=== PATIENT | male | born 1990 | race Caucasian/White ===

== ENCOUNTER 2019-11-04 22:09 | Emergency (ER) | payer OTHER ==
[2019-11-04 22:15] VITALS: BMI 48.2
--- NOTE | 2019-11-04 23:33 | PDOC ---
History of Present Illness - General Chief Complaint: Eye Problem Stated Complaint: BLURRY VISION History Source: Patient Exam Limitations: No Limitations - History of Present Illness Initial Comments: 11/04/19 23:21 Patient is a 29 year old male with no pmhx c/o double vision since 3 days ago. was sick with a cold, then a OCONNELL. States he went to work on 11/02/19 becauase the symtpoms were not back but on the way home he had to close one eye so he could drive home. went to [facility] yesterday and was Dx Sinusitis. Was given a shot for the pain which resolved OCONNELL, but continued to have double vision. He feels like pressing pain on the right eye 4/10 which feels better when he closes the eyes. PMHX: neg PSochx: occ etoh, neg drug, neg cig ALL: NKDA GENERAL/CONSTITUTIONAL: [No fever or chills. No weakness. No weight change.] HEAD, EYES, EARS, NOSE AND THROAT: [(+) change in vision. No ear pain or discharge. No sore throat.] CARDIOVASCULAR: [No chest pain or shortness of breath.] RESPIRATORY: [No cough, wheezing, or hemoptysis.] GASTROINTESTINAL: [No nausea, vomiting, diarrhea or constipation. No rectal bleeding.] GENITOURINARY: [No dysuria, frequency, or change in urination.] MUSCULOSKELETAL: [No joint or muscle swelling or pain. No neck or back pain.] SKIN AND BREASTS: [No rash or easy bruising.] NEUROLOGIC: [(+) headache, (-) vertigo, loss of consciousness, or loss of sensation.] PSYCHIATRIC: [No depression or anxiety.] ENDOCRINE: [No increased thirst. No abnormal weight change.] HEMATOLOGIC/LYMPHATIC: [No anemia, easy bleeding, or history of blood clots.] ALLERGIC/IMMUNOLOGIC: [No hives or skin allergy. No latex allergy.] GENERAL: [The patient is awake, alert, and fully oriented, in mild distress.] HEAD: [Normal with no signs of trauma.] EYES: [Pupils equal, round and reactive to light, extraocular movements intact, sclera anicteric, conjunctiva clear, VA 20/20 right , 20/40 left.] ENT: [Ears normal, nares patent, oropharynx clear without exudates. Moist mucous membranes.] NECK: [Normal range of motion, supple without lymphadenopathy, JVD, or masses.] LUNGS: [Breath sounds equal, clear to auscultation bilaterally. No wheezes, and no crackles.] HEART: [Regular rate and rhythm, normal S1 and S2 without murmur, rub.] ABDOMEN: [Soft, nontender, normoactive bowel sounds. No guarding, no rebound. No masses.] EXTREMITIES: [Normal range of motion, no edema. No clubbing or cyanosis. No cords, erythema, or tenderness.] NEUROLOGICAL: [Cranial nerves II through XII grossly intact. Normal speech, normal gait.] PSYCH: [Normal mood, normal affect.] SKIN: [Warm, Dry, normal turgor, no rashes or lesions noted.] Past History - Past Medical History Allergies/Adverse Reactions: Allergies Allergy/AdvReac Type Severity Reaction Status Date / Time No Known Allergies Allergy Verified 07/02/14 17:56 Home Medications: Ambulatory Orders Diphenhydramine HCl [Benadryl Capsule -] 25 mg PO Q6H #28 capsule 07/02/14 Ranitidine [Zantac -] 150 mg PO DAILY #5 tablet 07/02/14 COPD: No - Psycho Social/Smoking Cessation Hx Smoking History: Never smoked Have you smoked in the past 12 months: Yes Number of Cigarettes Smoked Daily: 3 Information on smoking cessation initiated: No 'Breaking Loose' booklet given: 07/02/14 Hx Alcohol Use: No Drug/Substance Use Hx: No Substance Use Type: None *Physical Exam - Vital Signs Last Vital Signs Temp Pulse Resp BP Pulse Ox 98.3 F 90 18 152/82 98 11/04/19 22:10 11/04/19 22:10 11/04/19 22:10 11/04/19 22:10 11/04/19 22:10 Medical Decision Making - Medical Decision Making 11/04/19 23:21 Patient is a 29 year old male with no pmhx c/o double vision since 3 days ago. was sick with a cold, then a OCONNELL. [facility] he went to work on 11/02/19 becauase the symtpoms were not back but on the way home he had to close one eye so he could drive home. went to [facility] yesterday and was Dx Sinusitis. Was given a shot for the pain which resolved OCONNELL, but continued to have double vision. He feels like pressing pain on the right eye 4/10 which feels better when he closes the eyes. Patient with headache double vision rule out neurological cause, OCONNELL, pathology in the eye center of the brain. will get head and facial CT if neg will need Opth referral Patient Full Name: MARIUSZ LEHMAN Patient Accession No: [id number] Patient : 1990 Reason for Exam: OCONNELL, DOUBLE VISION Referring Physician: Patient Name: DOMINIK VEE THIS IS A PRELIMINARY REPORT FROM [facility] DATE OF SERVICE: 2019-11-05 00:35:43 IMAGES: [id number] EXAM: HEAD CT WITHOUT CONTRAST HISTORY: Headache and double vision COMPARISON: None. FINDINGS: The ventricular system is midline and nondilated. The sulcal pattern is normal for the patient's age. There is a 3.4 x 1.6 cm anterior left temporal lobe arachnoid cyst. There is no bleed, solid mass, extra-axial fluid collection or mass effect. No skull fracture or skull lesion is identified. The visualized paranasal sinuses and mastoid air cells are clear other than minimal right ethmoid sinus mucosal thickening and small left maxillary sinus retention cyst or polyp. IMPRESSION: No acute pathology. One or more of the following dose reduction techniques were used: automated exposure control, adjustment of the mA and/or kV according to patient size, use of iterative reconstructive technique. THIS DOCUMENT HAS BEEN ELECTRONICALLY SIGNED Kory Singh MD 11/05/2019 01:45 EST Aura. Please call [facility] [employer] Office Manager [phone] with questions. INTERPRETING RADIOLOGIST: Graham Singh MD Electronically Signed: Nov 05, 2019 01:46AM EST Patient Full Name: MARIUSZ LEHMAN Patient Accession No: [id number] Patient : 1990 Reason for Exam: OCONNELL , DOUBLE VISION Referring Physician: Patient Name: DOMINIK VEE THIS IS A PRELIMINARY REPORT FROM [facility] DATE OF SERVICE: 2019-11-05 00:38:58 IMAGES: [id number] EXAM: FACIAL BONES CT W/O CONTRAST HISTORY: Headache and double vision COMPARISON: None. FINDINGS: The intraorbital contents are intact. The sinuses and visualized mastoid air cells are well aerated other than minimal right ethmoid sinus mucosal thickening and small left axillary sinus retention cyst or polyp. There is no fracture. IMPRESSION: No acute pathology. One or more of the following dose reduction techniques were used: automated exposure control, adjustment of the mA and/or kV according to patient size, use of iterative reconstructive technique. THIS DOCUMENT HAS BEEN ELECTRONICALLY SIGNED Kory Singh MD 11/05/2019 01:44 EST M.D. Please call [facility] [employer] Office Manager [phone] with questions. INTERPRETING RADIOLOGIST: Graham Singh MD Electronically Signed: Nov 05, 2019 01:45AM EST CT scans d/w patient and given copies. I discussed the physical exam findings, ancillary test results and final diagnoses with the patient. I answered all of the patient's questions. The patient was satisfied with the care received and felt comfortable with the discharge plan and treatment plan. The Patient agrees to follow up with the primary care physician within 24-72 hours. 11/05/19 02:12 patient left without his discharge papers Discharge - Discharge Information Problems reviewed: Yes Clinical Impression/Diagnosis: Double vision with both eyes open Condition: Stable Disposition: HOME - Follow up/Referral Referrals: Stevie Reddy MD [Staff Physician] - Gage Mtz MD [Non Staff, Medical] - - Patient Discharge Instructions Patient Printed Discharge Instructions: DI for Double Vision Additional Instructions: Your Discharge Instructions: You must call primary care physician within 24 hours to arrange follow-up. Return to the Emergency Department with any new, persistent or worsening symptoms, for fever, chills, SOB, dizziness or any other concerning changes that may occur. You must follow-up with neurology for further evaluation and work-up. - Post Discharge Activity Work/Back to School Note: Back to Work
[2019-11-05 01:28] VITALS: BP 123/75; PULSE 82
[2019-11-05 02:03] VITALS: TEMP 98.3
== END 2019-11-05 02:15 | disposition home or self-care (01) ==
LOC: JERFT 22:09 → JER 22:09
DX: H53.2 Diplopia (principal)
CPT/HCPCS: 70450-TC; 70486-TC; 99284-25

== ENCOUNTER 2024-07-13 13:13 | Emergency (ER) | payer SELFPAY ==
[2024-07-13 13:26] VITALS: BP 125/52; PULSE 87; RESP 18; TEMP 98.9; BMI 53.2
== END 2024-07-13 15:05 | disposition home or self-care (01) ==
LOC: JERFT 13:13
DX: T16.2XXA Foreign body in left ear, initial encounter (principal)
CPT/HCPCS: 99283-25